=== PATIENT | female | born 1950 | race Caucasian/White ===

== ENCOUNTER 2017-06-04 09:01 | Day surgery (SDC) | payer MEDICARE, BC ==
[~2017-06-04 09:01] MED LIST: ATROPINE 1 MG/10 ML SYRINGE IV; DIPHENHYDRAMINE 50 MG INJ IV; EPHEDrine SULFATE 50 MG/5 ML SYG IV; FENTAnyl 250MCG INJ; FENTAnyl 50 MCG/ML VIAL IV; HYDROmorphONE (0.2 MG/ML) 10ML SYG IV; LABETALOL HCL 20MG INJ IV; MIDAZOLAM 1 MG/ML 2 ML INJ; MIDAZOLAM 1 MG/ML 2 ML INJ IV; ONDANSETRON 4 MG INJ IV; OXYCODONE/ACETAMINOPHEN (5/325) TAB PO; morphine (1 MG/ML) 10ML SYRINGE IV
[2017-06-04] MEDS ORDERED: PROPOFOL 20 ML (09:56)
[2017-06-04] MEDS ORDERED: LIDOCAINE 2% (SDV) 5 ML INJ (09:56)
[2017-06-04] MEDS ORDERED: GLYCOPYRROLATE 1 MG INJ (09:56)
[2017-06-04] MEDS ORDERED: NEOSTIGMINE 3 MG/3 ML SYRINGE ×2 (09:56→14:40)
[2017-06-04] MEDS ORDERED: ROCURONIUM 50 MG INJ ×2 (09:56→13:41)
[2017-06-04] MEDS ORDERED: MIDAZOLAM 1 MG/ML 2 ML INJ (09:57)
[2017-06-04] MEDS ORDERED: FENTAnyl 50 MCG/ML VIAL (09:57)
[2017-06-04] MEDS ORDERED: DEXAMETHASONE 4 MG/ML 1 ML INJ ×2 (09:57→13:41)
[2017-06-04] MEDS ORDERED: ONDANSETRON 4 MG INJ ×2 (09:57→13:41)
[2017-06-04] MEDS ORDERED: PROPOFOL 100 ML (13:41)
[2017-06-04] MEDS ORDERED: GLYCOPYRROLATE 0.4 MG INJ (14:40)
[2017-06-04] MEDS ORDERED: SOD CHLORIDE 0.9% 1,000 ML IV (14:50)
[2017-06-04] MEDS: POLYMYXIN/BACITRACIN 1L IRRIG (14:55)
[2017-06-04] MEDS: ROPIVACAINE 0.5 % 30 ML VIAL (14:55)
[2017-06-04] MEDS ORDERED: morphine 2 MG INJ IV (15:00)
[2017-06-04] MEDS ORDERED: OXYCODONE/ACETAMINOPHEN (5/325) TAB PO ×2 (15:00)
[2017-06-04] MEDS ORDERED: ONDANSETRON 4 MG INJ IV (15:00)
[2017-06-04] MEDS: MEPERIDINE 25 MG INJ IV (15:22)
[2017-06-04] MEDS: hydrALAzine 20 MG INJ IV (15:23)
== END 2017-06-04 16:56 | disposition home or self-care (01) ==
LOC: SDS 09:01
DX: M20.11 Hallux valgus (acquired), right foot (principal); M19.071 Primary osteoarthritis, right ankle and foot; M20.21 Hallux rigidus, right foot; I10 Essential (primary) hypertension; E78.5 Hyperlipidemia, unspecified
CPT/HCPCS: 28291; 73660